=== PATIENT | female | born 1985 | race Caucasian/White ===

== ENCOUNTER 2016-10-02 12:29 | Emergency (ER) | payer MEDICAID ==
[~2016-10-02] VITALS: Ht 154.9 cm; Wt 73.0 kg
[~2016-10-02 12:29] MED LIST: PREN-88 PO
[2016-10-02] MEDS ORDERED: SODIUM CHLORIDE 0.9% 10ML VIAL ONE (13:15)
[2016-10-02] MEDS ORDERED: IOHEXOL-300 100 ML BOTTLE ONE (13:15)
[2016-10-02] MEDS ORDERED: SODIUM CHLORIDE 0.9% 1,000 ML IV ONE (13:19)
[2016-10-02 13:44] LABS: CLARITY URINE CLEAR (CLEAR); COLOR URINE YELLOW (YELLOW); GLUCOSE URINE NEGATIVE (NEGATIVE); KETONES URINE NEGATIVE (NEGATIVE); LEUKOCYTE ESTERASE URINE NEGATIVE (NEGATIVE); NITRITE URINE NEGATIVE (NEGATIVE); OCCULT BLOOD URINE NEGATIVE (NEGATIVE); PROTEIN URINE NEGATIVE (NEGATIVE); UROBILINOGEN URINE 0.2 E.U./dL (0.2-1.0)
[2016-10-02 14:17] LABS: CHLORIDE 106 mEq/L (98-107); INDEX HEMOLYSI 1 (1-3); INDEX ICTERIC 1 (1-4); INDEX LIPEMIC 1 (1-3)
[2016-10-02 14:18] LABS: INR 1.1; PARTIAL THROMBOPLASTIN TIME 27.3 sec (24.0-34.0); PROTHROMBIN TIME 11.7 sec
[2016-10-02 14:20] LABS: BASOPHILS % 0.6 % (0.0-2.0); DIFFERENTIAL COMMENT 0; EOSINOPHILS % 3.1 % (0.0-5.0); HEMATOCRIT. 35.4 % (36.0-48.0); HEMOGLOBIN. 11.3 g/dL (12.0-16.0); LYMPHOCYTES % 34.3 % (20.0-50.0); MEAN CORPUSCULAR HEMOGLOBIN 23.3 pg (28.0-32.0); MEAN CORPUSCULAR VOLUME 72.7 fL (81.0-99.0); MEAN PLATELET VOLUME 8.3 fl (7.4-10.4); MONOCYTES % 6.4 % (2.0-8.0); NEUTROPHILS % 55.6 % (40.0-76.0); PLATELET 276 x1000/uL (130-400); RED BLOOD CELL COUNT 4.86 mill/uL (4.2-5.4); RED CELL DISTRIBUTION WIDTH 16.4 % (11.6-14.6); WHITE BLOOD COUNT 8.9 x1000/uL (4.5-11.0)
[2016-10-02 14:25] LABS: ALANINE AMINOTRANSFERASE 23 IU/L (13-61); ALBUMIN 3.2 g/dL (3.4-5.0); ANION GAP 10; CALCIUM 8.2 mg/dL (8.5-10.1); CARBON DIOXIDE 28 mEq/L (21-32); LIPASE 103 IU/L (73-393); UREA NITROGEN BLOOD 9 mg/dL (7-21); eGFR > 60 mL/min (>60)
[2016-10-02 17:14] VITALS: BP 107/71
== END 2016-10-02 17:19 | disposition home or self-care (01) ==
LOC: ER 12:29
DX: R10.9 Unspecified abdominal pain (principal); R30.0 Dysuria; I10 Essential (primary) hypertension
CPT/HCPCS: 36415; 74177; 80053; 81003; 81025; 83690; 85025; 85610; 85730; 99285; A4216; Q9967; Z7610; J7030

== ENCOUNTER 2017-01-17 19:53 | Emergency (ER) | payer MEDICAID ==
[~2017-01-17] VITALS: Ht 154.9 cm; Wt 72.0 kg
[2017-01-17] MEDS ORDERED: VISCOUS LIDOCAINE 2% 15 ML UDC PO STA (22:34)
[2017-01-17] MEDS ORDERED: MAGNESIUM/ALUMINUM HYDROXIDE/SIMETHICONE 30ML UDC PO STA (22:34)
[2017-01-17] MEDS ORDERED: DICYCLOMINE 10 MG/5 ML ORAL SYR PO STA (22:34)
[2017-01-17] MEDS ORDERED: FAMOTIDINE 20MG/2ML VIAL IV STA (22:34)
[2017-01-17] MEDS ORDERED: KETOROLAC 30MG/ML VIAL IV STA (22:34)
[2017-01-17 23:01] LABS: CLARITY URINE CLEAR (CLEAR); COLOR URINE YELLOW (YELLOW); GLUCOSE URINE NEGATIVE (NEGATIVE); KETONES URINE NEGATIVE (NEGATIVE); LEUKOCYTE ESTERASE URINE NEGATIVE (NEGATIVE); NITRITE URINE NEGATIVE (NEGATIVE); OCCULT BLOOD URINE NEGATIVE (NEGATIVE); PH URINE 6.5 (4.5-8.0); PROTEIN URINE NEGATIVE (NEGATIVE); SPECIFIC GRAVITY URINE 1.013 (1.005-1.030); UROBILINOGEN URINE 0.2 E.U./dL (0.2-1.0)
[2017-01-17 23:06] LABS: BASOPHILS % 0.6 % (0.0-2.0); EOSINOPHILS % 2.7 % (0.0-5.0); HEMATOCRIT. 36.8 % (36.0-48.0); HEMOGLOBIN. 11.7 g/dL (12.0-16.0); LYMPHOCYTES % 43.6 % (20.0-50.0); MEAN CORPUSCULAR HEMOGLOBIN 23.4 pg (28.0-32.0); MEAN PLATELET VOLUME 7.5 fl (7.4-10.4); MONOCYTES % 5.2 % (2.0-8.0); NEUTROPHILS % 47.9 % (40.0-76.0); PLATELET 281 x1000/uL (130-400); RED BLOOD CELL COUNT 4.97 mill/uL (4.2-5.4); RED CELL DISTRIBUTION WIDTH 16.2 % (11.6-14.6)
[2017-01-17 23:12] LABS: CHLORIDE 102 mEq/L (98-107)
[2017-01-17 23:14] LABS: INR 1.1; PROTHROMBIN TIME 11.1 sec
[2017-01-17 23:20] LABS: CARBON DIOXIDE 28 mEq/L (21-32)
[2017-01-18 00:50] VITALS: BP 123/65
== END 2017-01-18 00:50 | disposition home or self-care (01) ==
LOC: ER 19:54
DX: R10.9 Unspecified abdominal pain (principal); R07.89 Other chest pain
CPT/HCPCS: 36415; 80053; 81003; 81025; 83690; 85025; 85610; 93005; 96374; 96375; 99285; J1885; J3490; Z7610

== ENCOUNTER 2017-08-14 11:37 | Emergency (ER) | payer MEDICAID ==
[~2017-08-14] VITALS: Ht 154.9 cm; Wt 73.0 kg
[2017-08-14 14:36] LABS: CLARITY URINE CLEAR (CLEAR); COLOR URINE YELLOW (YELLOW); KETONES URINE NEGATIVE (NEGATIVE); LEUKOCYTE ESTERASE URINE NEGATIVE (NEGATIVE); NITRITE URINE NEGATIVE (NEGATIVE); OCCULT BLOOD URINE NEGATIVE (NEGATIVE); PH URINE 8.5 (4.5-8.0); PROTEIN URINE NEGATIVE (NEGATIVE); SPECIFIC GRAVITY URINE 1.022 (1.005-1.030); UROBILINOGEN URINE 0.2 E.U./dL (0.2-1.0)
[2017-08-14 14:41] LABS: BASOPHILS % 0.7 % (0.0-2.0); EOSINOPHILS % 2.6 % (0.0-5.0); HEMATOCRIT. 35.8 % (36.0-48.0); HEMOGLOBIN. 11.5 g/dL (12.0-16.0); LYMPHOCYTES % 34.3 % (20.0-50.0); MEAN CORPUSCULAR HEMOGLOBIN 24.2 pg (28.0-32.0); MEAN CORPUSCULAR VOLUME 75.2 fL (81.0-99.0); MONOCYTES % 5.7 % (2.0-8.0); NEUTROPHILS % 56.7 % (40.0-76.0); PLATELET 282 x1000/uL (130-400); RED BLOOD CELL COUNT 4.76 mill/uL (4.2-5.4); RED CELL DISTRIBUTION WIDTH 16.2 % (11.6-14.6)
[2017-08-14 14:45] LABS: CHLORIDE 106 mEq/L (98-107)
[2017-08-14 15:00] LABS: B-HCG QUANTITATIVE 678 mIU/mL (<3)
[2017-08-14 17:25] VITALS: BP 129/71
== END 2017-08-14 17:54 | disposition home or self-care (01) ==
LOC: ER 12:21
DX: O20.9 Hemorrhage in early pregnancy, unspecified (principal); O26.891 Other specified pregnancy related conditions, first trimester; Z3A.01 Less than 8 weeks gestation of pregnancy
CPT/HCPCS: 36415; 76801; 76817; 80053; 81003; 81025; 84702; 85025; 86850; 86900; 86901; 99285; Z7610

== ENCOUNTER 2017-08-25 15:18 | Emergency (ER) | payer MEDICAID ==
[~2017-08-25] VITALS: Ht 154.9 cm; Wt 74.0 kg
[2017-08-25] MEDS ORDERED: ACETAMINOPHEN 500MG TABLET PO STA ×2 (15:34→20:35)
[2017-08-25 16:02] LABS: BASOPHILS % 0.8 % (0.0-2.0); EOSINOPHILS % 5.4 % (0.0-5.0); HEMATOCRIT. 37.7 % (36.0-48.0); HEMOGLOBIN. 12.4 g/dL (12.0-16.0); LYMPHOCYTES % 32.4 % (20.0-50.0); MEAN CORPUSCULAR HEMOGLOBIN 24.6 pg (28.0-32.0); MEAN CORPUSCULAR VOLUME 74.8 fL (81.0-99.0); MEAN PLATELET VOLUME 8.2 fl (7.4-10.4); MONOCYTES % 5.5 % (2.0-8.0); NEUTROPHILS % 55.9 % (40.0-76.0); PLATELET 324 x1000/uL (130-400); RED BLOOD CELL COUNT 5.04 mill/uL (4.2-5.4); RED CELL DISTRIBUTION WIDTH 15.6 % (11.6-14.6)
[2017-08-25 16:09] LABS: D-DIMER < 0.19 mg/L FEU (<0.50); INR 1.1; PARTIAL THROMBOPLASTIN TIME 26.8 sec (23.4-31.0); PROTHROMBIN TIME 11.4 sec (9.4-11.6)
[2017-08-25 16:10] LABS: CHLORIDE 103 mEq/L (98-107)
[2017-08-25 16:25] LABS: CLARITY URINE TURBID (CLEAR); COLOR URINE YELLOW (YELLOW); KETONES URINE NEGATIVE (NEGATIVE); LEUKOCYTE ESTERASE URINE NEGATIVE (NEGATIVE); NITRITE URINE NEGATIVE (NEGATIVE); OCCULT BLOOD URINE NEGATIVE (NEGATIVE); PH URINE 7.5 (4.5-8.0); PROTEIN URINE NEGATIVE (NEGATIVE); SPECIFIC GRAVITY URINE 1.017 (1.005-1.030)
[2017-08-25 21:52] VITALS: BP 128/76
== END 2017-08-25 22:02 | disposition home or self-care (01) ==
LOC: ER 18:16
DX: O26.891 Other specified pregnancy related conditions, first trimester (principal); R07.2 Precordial pain; R22.2 Localized swelling, mass and lump, trunk; M54.6 Pain in thoracic spine; Z98.890 Other specified postprocedural states; Z90.89 Acquired absence of other organs; Z3A.01 Less than 8 weeks gestation of pregnancy
CPT/HCPCS: 36415; 80053; 81003; 83690; 84484; 85025; 85379; 85610; 85730; 93005; 99285

== ENCOUNTER 2018-06-10 07:56 | Emergency (ER) | payer MEDICAID ==
[~2018-06-10] VITALS: Ht 154.9 cm; Wt 78.0 kg
[2018-06-10 07:58] VITALS: BP 153/92
== END 2018-06-10 16:02 | disposition home or self-care (01) ==
LOC: ER 12:02
DX: O99.511 Diseases of the respiratory system complicating pregnancy, first trimester (principal); Z3A.11 11 weeks gestation of pregnancy; Z98.890 Other specified postprocedural states; Z90.89 Acquired absence of other organs
CPT/HCPCS: 99282

== ENCOUNTER 2018-08-15 16:47 | Emergency (ER) | payer MEDICAID | END 2018-08-15 17:45 | disposition left against medical advice (07) | LOC: ER 16:47 | DX: R10.9 Unspecified abdominal pain (principal); Z53.21 Procedure and treatment not carried out due to patient leaving prior to being seen by health care provider ==

== ENCOUNTER 2018-08-17 07:38 | Observation (INO) | payer MEDICAID ==
[2018-08-17 09:19] LABS: CLARITY URINE CLEAR (CLEAR); COLOR URINE YELLOW (YELLOW); KETONES URINE NEGATIVE (NEGATIVE); LEUKOCYTE ESTERASE URINE NEGATIVE (NEGATIVE); NITRITE URINE NEGATIVE (NEGATIVE); OCCULT BLOOD URINE NEGATIVE (NEGATIVE); PH URINE 6.5 (4.5-8.0); PROTEIN URINE TRACE (NEGATIVE); SPECIFIC GRAVITY URINE 1.021 (1.005-1.030)
== END 2018-08-17 11:00 | disposition home or self-care (01) ==
LOC: 8 EST LDRP 07:38
PROVIDERS: ADMIT Specialist; ATTEND Specialist
DX: O26.892 Other specified pregnancy related conditions, second trimester (principal); R10.30 Lower abdominal pain, unspecified; Z3A.20 20 weeks gestation of pregnancy
CPT/HCPCS: 81003; 99281; G0378

== ENCOUNTER 2018-09-21 11:53 | Emergency (ER) | payer MEDICAID ==
[~2018-09-21] VITALS: Ht 154.9 cm; Wt 78.0 kg
[2018-09-21] MEDS ORDERED: ACETAMINOPHEN 325MG TABLET PO ONE (15:15)
[2018-09-21 16:15] VITALS: BP 114/68
== END 2018-09-21 16:25 | disposition home or self-care (01) ==
LOC: ER 11:53
DX: S90.31XA Contusion of right foot, initial encounter (principal); M79.671 Pain in right foot; X58.XXXA Exposure to other specified factors, initial encounter; Y93.89 Activity, other specified; Y92.9 Unspecified place or not applicable
CPT/HCPCS: 73630; 99283

== ENCOUNTER 2019-01-28 18:28 | Emergency (ER) | payer MEDICAID ==
[~2019-01-28] VITALS: Ht 157.5 cm; Wt 73.0 kg
[2019-01-28] MEDS ORDERED: KETOROLAC 60MG/2ML VIAL IM ONE (19:00)
[2019-01-28 19:17] LABS: CLARITY URINE CLEAR (CLEAR); COLOR URINE YELLOW (YELLOW); KETONES URINE TRACE (NEGATIVE); LEUKOCYTE ESTERASE URINE 1+ (NEGATIVE); NITRITE URINE NEGATIVE (NEGATIVE); OCCULT BLOOD URINE TRACE (NEGATIVE); PH URINE 7.5 (4.5-8.0); PROTEIN URINE NEGATIVE (NEGATIVE); SPECIFIC GRAVITY URINE 1.027 (1.005-1.030)
[2019-01-28 21:00] VITALS: BP 120/71
== END 2019-01-28 21:02 | disposition home or self-care (01) ==
LOC: ER 18:44
DX: M54.30 Sciatica, unspecified side (principal); N39.0 Urinary tract infection, site not specified; Z98.890 Other specified postprocedural states; Z90.89 Acquired absence of other organs
CPT/HCPCS: 81003; 81025; 96372; 99283; J1885

== ENCOUNTER 2020-03-28 06:27 | Emergency (ER) | payer MEDICAID ==
[~2020-03-28] VITALS: Ht 154.9 cm; Wt 77.0 kg
[2020-03-28] MEDS ORDERED: TRAMADOL 50MG TABLET PO ONE (07:00)
[2020-03-28 08:56] VITALS: BP 125/76
== END 2020-03-28 09:30 | disposition home or self-care (01) ==
LOC: ER 06:27
DX: L72.9 Follicular cyst of the skin and subcutaneous tissue, unspecified (principal); I49.9 Cardiac arrhythmia, unspecified; Z98.890 Other specified postprocedural states; Z90.89 Acquired absence of other organs
CPT/HCPCS: 76642; 81025; 93005; 99284

== ENCOUNTER 2020-03-30 10:32 | Emergency (ER) | payer MEDICAID ==
[~2020-03-30] VITALS: Ht 162.6 cm; Wt 76.0 kg
[2020-03-30] MEDS ORDERED: LIDOCAINE HCL/EPINEPHRINE 1%-EPI 1:100,000 20 ML VIAL INFIL ONE (11:15)
[2020-03-30] MEDS ORDERED: LIDOCAINE 1%/EPI 1:100,000 10 ML VIAL IJ ONE (11:30)
[2020-03-30 12:13] VITALS: BP 128/87
[2020-03-30] MEDS ORDERED: IBUPROFEN 600MG TABLET PO ONE (12:15)
== END 2020-03-30 12:19 | disposition home or self-care (01) ==
LOC: ER 11:40
DX: J86.9 Pyothorax without fistula (principal); Z98.890 Other specified postprocedural states
CPT/HCPCS: 10060; 99283; J3490

== ENCOUNTER 2022-02-12 08:20 | Emergency (ER) | payer MEDICAID ==
[~2022-02-12] VITALS: Ht 160 cm; Wt 75.0 kg
[2022-02-12 09:09] LABS: BASOPHILS % 0.5 % (0.0-2.0); HEMATOCRIT. 39.1 % (36.0-48.0); HEMOGLOBIN. 12.7 g/dL (12.0-16.0); LYMPHOCYTES % 39.3 % (20.0-50.0); MEAN CORPUSCULAR HEMOGLOBIN 25.6 pg (28.0-32.0); MEAN CORPUSCULAR VOLUME 78.6 fL (81.0-99.0); MEAN PLATELET VOLUME 7.6 fl (7.4-10.4); MONOCYTES % 6.2 % (2.0-8.0); PLATELET 287 x1000/uL (130-400); RED BLOOD CELL COUNT 4.97 mill/uL (4.2-5.4); RED CELL DISTRIBUTION WIDTH 15.7 % (11.6-14.6)
[2022-02-12] MEDS ORDERED: ACETAMINOPHEN 325MG TABLET PO PRN (09:15)
[2022-02-12 09:18] LABS: CHLORIDE 102 mEq/L (98-107)
[2022-02-12 09:28] LABS: B-HCG QUANTITATIVE 78 mIU/mL (<3)
[2022-02-12 12:34] VITALS: BP 118/86
[2022-02-12 13:06] LABS: CLARITY URINE CLEAR (CLEAR); COLOR URINE YELLOW (YELLOW); KETONES URINE NEGATIVE (NEGATIVE); LEUKOCYTE ESTERASE URINE NEGATIVE (NEGATIVE); NITRITE URINE NEGATIVE (NEGATIVE); OCCULT BLOOD URINE 1+ (NEGATIVE); PH URINE 7.5 (4.5-8.0); PROTEIN URINE NEGATIVE (NEGATIVE); SPECIFIC GRAVITY URINE 1.004 (1.005-1.030); UROBILINOGEN URINE 0.2 E.U./dL (0.2-1.0)
== END 2022-02-12 12:45 | disposition home or self-care (01) ==
LOC: ER 08:20
DX: O03.9 Complete or unspecified spontaneous abortion without complication (principal); Z98.890 Other specified postprocedural states
CPT/HCPCS: 36415; 76801; 80053; 81003; 81025; 84702; 85025; 86850; 86900; 99284

== ENCOUNTER 2023-12-30 16:55 | Emergency (ER) | payer MEDICAID ==
[~2023-12-30] VITALS: Ht 154.9 cm; Wt 76.2 kg
[2023-12-30 17:11] VITALS: O2SAT 99
[2023-12-30 19:02] LABS: BASOPHILS % 1.1 % (0.0-2.0); DIFFERENTIAL COMMENT 0; EOSINOPHILS % 2.9 % (0.0-5.0); HEMATOCRIT. 37.1 % (36.0-48.0); HEMOGLOBIN. 11.8 g/dL (12.0-16.0); LYMPHOCYTES % 35.2 % (20.0-50.0); MEAN CORPUSCULAR HEMOGLOBIN 23.9 pg (28.0-32.0); MEAN CORPUSCULAR HGB CONC 31.7 g/dL (31.0-37.0); MEAN CORPUSCULAR VOLUME 75.3 fL (81.0-99.0); MEAN PLATELET VOLUME 7.6 fl (7.4-10.4); MONOCYTES % 5.6 % (2.0-8.0); NEUTROPHILS % 55.2 % (40.0-76.0); PLATELET 366 x1000/uL (130-400); RED BLOOD CELL COUNT 4.93 mill/uL (4.2-5.4); RED CELL DISTRIBUTION WIDTH 15.5 % (11.6-14.6)
[2023-12-30 19:03] LABS: CHLORIDE 105 mEq/L (98-107); POTASSIUM 4.4 mEq/L (3.5-5.1); SODIUM 137 mEq/L (136-145)
[2023-12-30 19:04] LABS: CALCIUM 9.3 mg/dL (8.7-10.4); CARBON DIOXIDE 27 mEq/L (21-32)
[2023-12-30 19:06] LABS: HCG SCREEN NEGATIVE
[2023-12-30 19:09] LABS: CREATININE 0.7 mg/dL (0.6-1.0); GLUCOSE 89 mg/dL (70-105); UREA NITROGEN BLOOD 6 mg/dL (9-23)
[2023-12-30 19:11] LABS: ALANINE AMINOTRANSFERASE 14 IU/L (10-49); ALBUMIN 4.3 g/dL (3.2-4.8); ASPARTATE AMINOTRANSFERASE 14 IU/L (<34); BILIRUBIN TOTAL 0.4 mg/dL (0.1-1.0)
[2023-12-30] MEDS: ACETAMINOPHEN 325MG TABLET PO ONE (19:18)
[2023-12-30] MEDS: ONDANSETRON 4MG ODT PO ONE (19:19)
[2023-12-30 19:25] LABS: PROTHROMBIN TIME 11.1 sec (9.6-11.0)
[2023-12-30 19:33] LABS: CLARITY URINE CLEAR (CLEAR); COLOR URINE YELLOW (YELLOW); GLUCOSE URINE NEGATIVE (NEGATIVE); KETONES URINE NEGATIVE (NEGATIVE); LEUKOCYTE ESTERASE URINE TRACE (NEGATIVE); NITRITE URINE POSITIVE (NEGATIVE); OCCULT BLOOD URINE TRACE (NEGATIVE); PROTEIN URINE NEGATIVE (NEGATIVE); SPECIFIC GRAVITY URINE 1.013 (1.005-1.030); UROBILINOGEN URINE 0.2 E.U./dL (0.2-1.0)
[2023-12-30 19:58] LABS: BACTERIA URINE 2+; RBC URINE 0-2 /hpf (0-2); SQUAMOUS EPITHELIAL CELL URINE FEW /lpf (RARE/1+); WBC URINE 0-2 /hpf (0-2)
[2023-12-30] MEDS ORDERED: NITR-87 MT (21:46)
[2023-12-30 22:52] VITALS: BP 139/77; PULSE 74; RESP 12; TEMP 97.9
== END 2023-12-30 22:53 | disposition home or self-care (01) ==
LOC: ER 16:55
DX: N39.0 Urinary tract infection, site not specified (principal); K80.20 Calculus of gallbladder without cholecystitis without obstruction; Z98.890 Other specified postprocedural states
CPT/HCPCS: 99284; 76705; 80053; 81003; 84703; 83690; 85025; 85610; 36415; Q0162

== ENCOUNTER 2024-03-14 06:38 | Day surgery (SDC) | payer MEDICAID ==
[~2024-03-14] VITALS: Ht 154.9 cm; Wt 78.5 kg
[2024-03-14] MEDS ORDERED: SKIN ADHESIVE 0.7 GM EA TOP ONE ×2 (06:51→11:00)
[2024-03-14] MEDS ORDERED: BUPIVACAINE HCL/PF 0.5% (5MG/ML) 10ML ONE ×2 (06:51→11:00)
[2024-03-14 07:02] LABS: UCG SCREEN NEGATIVE
[2024-03-14] MEDS: LACTATED RINGERS 1,000 ML IV SCH (07:41)
[2024-03-14] MEDS ORDERED: ROCURONIUM BROMIDE 10MG/ML VIAL 5ML IV ONE (10:30)
[2024-03-14] MEDS ORDERED: PROPOFOL 200MG/20ML VIAL IV ONE (10:30)
[2024-03-14] MEDS ORDERED: CEFAZOLIN SODIUM 1000MG/VIAL ONE ×2 (10:30→10:52)
[2024-03-14] MEDS ORDERED: NEOSTIGMINE METHYLSULFATE 1MG/ML 10 ML VIAL ONE (10:30)
[2024-03-14] MEDS ORDERED: DEXAMETHASONE 4MG/ML 1ML VIAL ONE (10:30)
[2024-03-14] MEDS ORDERED: ONDANSETRON HCL 4MG/2ML INJ ONE (10:30)
[2024-03-14] MEDS ORDERED: MIDAZOLAM HCL 2 MG/2 ML VIAL ONE ×2 (10:31→11:37)
[2024-03-14] MEDS ORDERED: FENTANYL CITRATE/PF 50MCG/ML 2ML VIAL ONE ×2 (10:31→11:44)
[2024-03-14] MEDS ORDERED: GLYCOPYRROLATE 0.2 MG/ML 2ML VIAL ONE ×2 (10:31)
[2024-03-14] MEDS ORDERED: ALBUTEROL 6.7GM HFA INHALER ONE (10:52)
[2024-03-14] MEDS ORDERED: LIDOCAINE HCL 1% 20ML VIAL ONE (10:53)
[2024-03-14] MEDS ORDERED: LABETALOL 5MG/ML 4ML INJ IV PRN (11:15)
[2024-03-14] MEDS ORDERED: MEPERIDINE HCL/PF 25MG/ML CPJ IV PRN (11:15)
[2024-03-14] MEDS ORDERED: SUGAMMADEX SODIUM 200MG/2ML VIAL IV ONE (11:36)
[2024-03-14] MEDS: HYDROMORPHONE HCL/PF 1MG/ML INJ IV PRN (12:01)
[2024-03-14] MEDS: ONDANSETRON HCL 4MG/2ML INJ IV PRN (12:12)
[2024-03-14 12:52] VITALS: BP 154/78; PULSE 98; RESP 20
[2024-03-14] MEDS: METOCLOPRAMIDE HCL 10MG/2ML VIAL IV NR (14:09)
[2024-03-14] MEDS: DEXAMETHASONE 4MG/ML 1ML VIAL IV NR (15:45)
== END 2024-03-14 16:20 | disposition home or self-care (01) ==
LOC: OR 06:38
PROVIDERS: ATTEND Surgery
DX: K80.10 Calculus of gallbladder with chronic cholecystitis without obstruction (principal); Z79.899 Other long term (current) drug therapy; Z98.890 Other specified postprocedural states
CPT/HCPCS: 47562; 81025; 88304; J3010; J3490 ×4; J0690; J1100; J2765; J2250; J2405; J2704; J1171; J7030; J2710